=== PATIENT | female | born 1970 | race Hispanic/Latino ===

== ENCOUNTER → 2020-01-25 | Outpatient (CLI) | payer MEDICARE | END | disposition home or self-care (01) | LOC: SHCH 13:35 | PROVIDERS: ATTEND Internal Medicine Cardiovascular Disease | DX: I10 Essential (primary) hypertension (principal); R06.00 Dyspnea, unspecified | CPT/HCPCS: 93306; 93356 ==

== ENCOUNTER → 2020-01-27 | Outpatient (CLI) | payer MEDICARE ==
[~2020-01-27] MED LIST: REGADENOSON 0.4 MG/5 ML PF SYG IVP SCH
== END | disposition home or self-care (01) ==
LOC: SHCH 08:03 → EDUNIT# 08:30
PROVIDERS: ATTEND Internal Medicine Cardiovascular Disease
DX: I10 Essential (primary) hypertension (principal); R06.00 Dyspnea, unspecified; R53.83 Other fatigue; R07.89 Other chest pain
CPT/HCPCS: 78452; 93017; 96374; A9500 ×2; J2785

== ENCOUNTER 2021-04-26 05:30 | Day surgery (SDC) | payer MEDICARE ==
[2021-04-24 10:24] LABS: BASOPHILS % (AUTO) 0.6 % (0.0-5.0); EOSINOPHILS % (AUTO) 0.7 % (0.0-8.0); LYMPHOCYTES % (AUTO) 18.5 % (21.0-51.0); MEAN CORPUSCULAR HGB CONC 32.7 g/dL (32.0-36.0); MEAN CORPUSCULAR VOLUME 97.9 fL (79-99); MONOCYTES % (AUTO) 9.4 % (3.0-13.0); NEUTROPHILS % (AUTO) 69.7 % (40.0-77.0); PLATELET COUNT (AUTO) 226 K/uL (130-400); RED BLOOD CELL COUNT(AUTO) 3.37 MIL/uL (4.00-5.50); RED CELL DISTRIBUTION WIDTH 13.2 % (11.0-15.5); WHITE BLOOD COUNT (AUTO) 5.4 K/uL (4.8-10.8)
[2021-04-24 10:27] LABS: APPEARANCE,URINE Cloudy (CLEAR); BILIRUBIN,URINE Negative (NEGATIVE); COLOR,URINE Yellow (YELLOW); GLUCOSE, URINE (UA) 500 mg/dL (NEGATIVE); KETONES,URINE Negative (NEGATIVE); LEUKOCYTE ESTERASE ,URINE Trace (NEGATIVE); NITRATE,URINE Negative (NEGATIVE); OCCULT BLOOD,URINE Negative (NEGATIVE); PH,URINE 8.5 (5.0-8.0); PROTEIN,URINE >=1000 mg/dL (NEGATIVE)
[2021-04-24 10:35] LABS: INR 1.01 (0.85-1.15)
[2021-04-24 10:36] LABS: CREATININE 7.3 mg/dL (0.5-1.5); PARTIAL THROMBOPLASTIN TIME 30.5 SEC (26.3-35.5); POTASSIUM 4.1 mmol/L (3.5-5.1)
[2021-04-24 10:45] LABS: BACTERIA,URINE Few /HPF (None Seen); RBC,URINE 0-1 /HPF (0-1); WBC,URINE 0-1 /HPF (0-1)
[2021-04-25 09:31] VITALS: BP 148/67
[~2021-04-26] VITALS: Ht 149.9 cm; Wt 73.1 kg
[2021-04-26] VITALS (10 sets, daily range): BP systolic 105–158; BP diastolic 49–68
[~2021-04-26 05:30] MED LIST changes: +0.9% NACL 500ML IV.SOLN 500 ML IV SCH; +ASPI-1443 PO; +CARV6.25 PO; +CILO50TA PO; +INSU100V12 SQ; +LOSA100T58 PO; +NIFE60TA81 PO; -REGADENOSON 0.4 MG/5 ML PF SYG IVP SCH; +SEVE800T27 PO
[2021-04-26] MEDS ORDERED: 0.9%NACL 1000ML 1,000 ML IV ONE (06:08)
[2021-04-26] MEDS ORDERED: MIDAZOLAM HCL 1 MG/ML 2ML VIAL ONE (07:20)
[2021-04-26] MEDS ORDERED: HEPARIN 10,000 UNIT/10ML (1,000 UNIT/ML) VIAL ONE (07:20)
[2021-04-26] MEDS ORDERED: NITROGLYCERIN 50MG VIAL ONE (07:20)
[2021-04-26] MEDS ORDERED: LIDOCAINE HCL 400MG/20ML VIAL ONE (07:20)
[2021-04-26] MEDS ORDERED: FENTANYL CITRATE PF 50 MCG/1 ML 2ML VIAL ONE (07:20)
[2021-04-26] MEDS ORDERED: IOHEXOL 350 MG/ML 100ML INFUS..BTL IV ONE (07:26)
[2021-04-26] MEDS ORDERED: CLOPIDOGREL 300MG TAB ONE (08:13)
[2021-04-26] MEDS ORDERED: ASPIRIN 325MG EC TAB PO ONE (08:13)
[2021-04-26] MEDS ORDERED: HYDRALAZINE 20MG/ML VIAL ONE (08:47)
== END 2021-04-26 14:20 | disposition home or self-care (01) ==
LOC: DAH 05:30
PROVIDERS: ATTEND Internal Medicine Cardiovascular Disease
DX: I25.118 Atherosclerotic heart disease of native coronary artery with other forms of angina pectoris (principal); E11.22 Type 2 diabetes mellitus with diabetic chronic kidney disease; I13.2 Hypertensive heart and chronic kidney disease with heart failure and with stage 5 chronic kidney disease, or end stage renal disease; N18.6 End stage renal disease; E11.51 Type 2 diabetes mellitus with diabetic peripheral angiopathy without gangrene; E78.5 Hyperlipidemia, unspecified; Z79.82 Long term (current) use of aspirin; Z79.01 Long term (current) use of anticoagulants; Z79.899 Other long term (current) drug therapy; Z83.3 Family history of diabetes mellitus; Z82.49 Family history of ischemic heart disease and other diseases of the circulatory system; Z99.2 Dependence on renal dialysis
CPT/HCPCS: 36415 ×2; 71045; 80048; 81001; 82948; 85025; 85347; 85610; 85730; 93005; 93458; A4215; A4216; A4221; A4222; A4223 ×3; A4606; A4663; C1725 ×2; C1760; C1769; C1874; C1887 ×2; C1894 ×2; C9600; J0360; J1644 ×2; J2250; J3010; J3490 ×2; J7030; Q9965 ×2; Q9967; 99156; 99157

== ENCOUNTER 2022-06-06 05:33 | Day surgery (SDC) | payer MEDICARE ==
[2022-06-04 09:45] VITALS: BP 138/58
[2022-06-04 09:50] LABS: BASOPHILS % (AUTO) 0.6 % (0.0-5.0); EOSINOPHILS % (AUTO) 1.9 % (0.0-8.0); LYMPHOCYTES % (AUTO) 18.8 % (21.0-51.0); MEAN CORPUSCULAR HEMOGLOBIN 32.3 pg (27.0-33.0); MEAN CORPUSCULAR HGB CONC 32.1 g/dL (32.0-36.0); MEAN CORPUSCULAR VOLUME 100.6 fL (79-99); MONOCYTES % (AUTO) 9.6 % (3.0-13.0); NEUTROPHILS % (AUTO) 68.1 % (40.0-77.0); PLATELET COUNT (AUTO) 238 K/uL (130-400); RED BLOOD CELL COUNT(AUTO) 3.28 MIL/uL (4.00-5.50); RED CELL DISTRIBUTION WIDTH 12.8 % (11.0-15.5); WHITE BLOOD COUNT (AUTO) 7.2 K/uL (4.8-10.8)
[2022-06-04 10:06] LABS: INR 0.99 (0.85-1.15); PROTHROMBIN TIME 10.8 SEC (9.6-11.6)
[2022-06-04 10:07] LABS: PARTIAL THROMBOPLASTIN TIME 28.6 SEC (26.3-35.5); POTASSIUM 5.3 mmol/L (3.5-5.1)
[2022-06-04 10:11] LABS: CREATININE 8.5 mg/dL (0.5-1.5)
[2022-06-04 10:47] LABS: B-TYPE NATRIURETIC PEPTIDE 67 pg/mL (0-100)
[2022-06-06] VITALS (10 sets, daily range): BP systolic 97–158; BP diastolic 49–77
[~2022-06-06] VITALS: Ht 149.9 cm; Wt 81.8 kg
[~2022-06-06 05:33] MED LIST changes: -0.9% NACL 500ML IV.SOLN 500 ML IV SCH; -ASPI-1443 PO; -CILO50TA PO; +CILO50TA2 PO; +CLOP75TA32 PO; +GABA-529 PO; +LYSI500T45 PO; +PRAV10TA39 PO; -SEVE800T27 PO; +UBID50CA23 PO
[2022-06-06] MEDS ORDERED: 0.9%NACL 1000ML 1,000 ML IV ONE (06:20)
[2022-06-06] MEDS ORDERED: NICARDIPINE 25MG INJ IV ONE (07:09)
[2022-06-06] MEDS ORDERED: MIDAZOLAM HCL 1 MG/ML 2ML VIAL ONE ×2 (07:09→09:14)
[2022-06-06] MEDS ORDERED: IODIXANOL 320 MG/ML 100 ML VIAL ONE (07:09)
[2022-06-06] MEDS ORDERED: NITROGLYCERIN 50MG VIAL ONE (07:09)
[2022-06-06] MEDS ORDERED: FENTANYL CITRATE PF 50 MCG/1 ML 2ML VIAL ONE ×2 (07:10→09:14)
[2022-06-06] MEDS ORDERED: LIDOCAINE HCL 1% MDV 50ML VIAL ONE (07:10)
[2022-06-06] MEDS ORDERED: HEPARIN 10,000 UNIT/10ML (1,000 UNIT/ML) VIAL ONE (07:11)
[2022-06-06] MEDS ORDERED: CLOPIDOGREL 300MG TAB ONE (08:48)
[2022-06-06] MEDS ORDERED: ACETAMINOPHEN 325 MG TAB ONE (10:24)
[2022-06-06] MEDS ORDERED: ACETAMINOPHEN 325 MG TAB PO SCH (10:30)
== END 2022-06-06 15:00 | disposition home or self-care (01) ==
LOC: DAH 05:33
PROVIDERS: ATTEND Internal Medicine Cardiovascular Disease
DX: I70.211 Atherosclerosis of native arteries of extremities with intermittent claudication, right leg (principal); I70.92 Chronic total occlusion of artery of the extremities; E11.51 Type 2 diabetes mellitus with diabetic peripheral angiopathy without gangrene; E11.22 Type 2 diabetes mellitus with diabetic chronic kidney disease; I13.2 Hypertensive heart and chronic kidney disease with heart failure and with stage 5 chronic kidney disease, or end stage renal disease; I50.32 Chronic diastolic (congestive) heart failure; N18.6 End stage renal disease; E78.5 Hyperlipidemia, unspecified; I87.2 Venous insufficiency (chronic) (peripheral); Z99.2 Dependence on renal dialysis; Z79.01 Long term (current) use of anticoagulants; Z79.899 Other long term (current) drug therapy; Z79.82 Long term (current) use of aspirin; Z95.5 Presence of coronary angioplasty implant and graft; Z79.1 Long term (current) use of non-steroidal anti-inflammatories (NSAID); Z82.49 Family history of ischemic heart disease and other diseases of the circulatory system; Z83.3 Family history of diabetes mellitus; Z86.16 Personal history of COVID-19
CPT/HCPCS: 80048; 83880; 84703; 85025; 85610; 85730; 36415; 71045; 93005; 37229; 85347; 82948 ×2; 75716; C1894 ×2; C1769 ×4; C1760; C1893; C1724; C1725; C1887; J3010 ×2; J7030; J3490 ×3; J1644 ×2; J2250 ×2; Q9967; A4215; A4222; A4221; A4663; A4216; A4606; A4223 ×3; 99156; 99157

== ENCOUNTER → 2022-08-28 | Outpatient (CLI) | payer MEDICARE ==
[~2022-08-28] VITALS: Ht 149.9 cm; Wt 81.4 kg
[~2022-08-28] MED LIST changes: -LOSA100T58 PO; +LOSA100T59 PO
[2022-08-28 08:41] LABS: BASOPHILS % (AUTO) 0.4 % (0.0-5.0); EOSINOPHILS % (AUTO) 1.2 % (0.0-8.0); HEMATOCRIT 39.9 % (36-48); MEAN CORPUSCULAR HEMOGLOBIN 31.4 pg (27.0-33.0); MEAN CORPUSCULAR HGB CONC 31.6 g/dL (32.0-36.0); MEAN CORPUSCULAR VOLUME 99.5 fL (79-99); MONOCYTES % (AUTO) 5.3 % (3.0-13.0); NEUTROPHILS % (AUTO) 76.4 % (40.0-77.0); PLATELET COUNT (AUTO) 250 K/uL (130-400); RED BLOOD CELL COUNT(AUTO) 4.01 MIL/uL (4.00-5.50); RED CELL DISTRIBUTION WIDTH 11.9 % (11.0-15.5); WHITE BLOOD COUNT (AUTO) 9.3 K/uL (4.8-10.8)
[2022-08-28 08:53] LABS: INR 0.94 (0.85-1.15); PROTHROMBIN TIME 10.3 SEC (9.6-11.6)
[2022-08-28 08:55] LABS: CREATININE 5.7 mg/dL (0.5-1.5)
[2022-08-28 09:17] LABS: B-TYPE NATRIURETIC PEPTIDE 53 pg/mL (0-100)
[2022-08-28 09:57] VITALS: BP 155/73
== END | disposition home or self-care (01) ==
LOC: EDSTATUS 08:00 → DAH 10:00
PROVIDERS: ATTEND Internal Medicine Cardiovascular Disease
DX: Z01.818 Encounter for other preprocedural examination (principal); I73.9 Peripheral vascular disease, unspecified; Z79.01 Long term (current) use of anticoagulants
CPT/HCPCS: 36415; 71045; 80048; 83880; 85025; 85610; 85730; 93005

== ENCOUNTER 2022-09-12 07:20 | Day surgery (SDC) | payer MEDICARE ==
[2022-09-10 11:24] LABS: BASOPHILS % (AUTO) 0.4 % (0.0-5.0); EOSINOPHILS % (AUTO) 1.3 % (0.0-8.0); HEMATOCRIT 36.9 % (36-48); LYMPHOCYTES % (AUTO) 17.2 % (21.0-51.0); MEAN CORPUSCULAR HEMOGLOBIN 31.6 pg (27.0-33.0); MEAN CORPUSCULAR HGB CONC 31.7 g/dL (32.0-36.0); MEAN CORPUSCULAR VOLUME 99.7 fL (79-99); MONOCYTES % (AUTO) 7.2 % (3.0-13.0); NEUTROPHILS % (AUTO) 72.8 % (40.0-77.0); PLATELET COUNT (AUTO) 273 K/uL (130-400); RED CELL DISTRIBUTION WIDTH 12.6 % (11.0-15.5); WHITE BLOOD COUNT (AUTO) 9.3 K/uL (4.8-10.8)
[2022-09-10 11:36] LABS: POTASSIUM 5.9 mmol/L (3.5-5.1)
[2022-09-10 11:39] LABS: INR 1.08 (0.85-1.15); PROTHROMBIN TIME 11.7 SEC (9.6-11.6)
[2022-09-10 11:41] LABS: PARTIAL THROMBOPLASTIN TIME 35.8 SEC (26.3-35.5)
[2022-09-10 13:32] VITALS: BP 111/60
[~2022-09-12] VITALS: Ht 149.9 cm; Wt 82.3 kg
[2022-09-12] VITALS (9 sets, daily range): BP systolic 110–132; BP diastolic 51–64
[~2022-09-12 07:20] MED LIST changes: +NIFE-79 PO; -NIFE60TA81 PO; +TIRZ2.5P SQ
[2022-09-12] MEDS ORDERED: 0.9%NACL 1000ML 1,000 ML IV ONE (08:55)
[2022-09-12] MEDS ORDERED: [UNRECOGNIZED DRUG - CODE] PO (09:30)
[2022-09-12] MEDS ORDERED: RIVA2.5T PO (09:30)
[2022-09-12] MEDS ORDERED: SEVE0.8P3 PO (09:30)
[2022-09-12] MEDS ORDERED: TIRZ2.5P SQ (09:30)
[2022-09-12 09:55] LABS: CREATININE 7.6 mg/dL (0.5-1.5); POTASSIUM 5.8 mmol/L (3.5-5.1)
[2022-09-12] MEDS ORDERED: FENTANYL CITRATE PF 50 MCG/1 ML 2ML VIAL ONE ×2 (13:08→15:59)
[2022-09-12] MEDS ORDERED: LIDOCAINE HCL 400MG/20ML VIAL ONE (13:08)
[2022-09-12] MEDS ORDERED: MIDAZOLAM HCL 1 MG/ML 2ML VIAL ONE ×2 (13:09→15:00)
[2022-09-12] MEDS ORDERED: NITROGLYCERIN 50MG VIAL ONE (13:09)
[2022-09-12] MEDS ORDERED: HEPARIN 10,000 UNIT/10ML (1,000 UNIT/ML) VIAL ONE (13:09)
[2022-09-12] MEDS ORDERED: NICARDIPINE 25MG INJ IV ONE (13:09)
[2022-09-12] MEDS ORDERED: IODIXANOL 320 MG/ML 100 ML VIAL ONE (13:49)
[2022-09-12] MEDS ORDERED: CLOPIDOGREL 300MG TAB ONE (14:17)
[2022-09-12] MEDS ORDERED: DEXTROSE 50%-WATER 50 ML DISP.SYRIN IV PRN (16:30)
[2022-09-12] MEDS ORDERED: GLUCAGON 1MG KIT 1 MG ML IM PRN (16:30)
[2022-09-12] MEDS ORDERED: ACETAMINOPHEN WITH CODEINE 1 TAB TAB PO PRN (17:00)
[2022-09-12] MEDS: ACETAMINOPHEN WITH CODEINE 1 TAB TAB PO PRN ×2 (18:08→18:55)
== END 2022-09-12 19:47 | disposition home or self-care (01) ==
LOC: DAH 07:20
PROVIDERS: ATTEND Internal Medicine Cardiovascular Disease
DX: I70.212 Atherosclerosis of native arteries of extremities with intermittent claudication, left leg (principal); I70.92 Chronic total occlusion of artery of the extremities; E11.51 Type 2 diabetes mellitus with diabetic peripheral angiopathy without gangrene; E11.22 Type 2 diabetes mellitus with diabetic chronic kidney disease; I13.2 Hypertensive heart and chronic kidney disease with heart failure and with stage 5 chronic kidney disease, or end stage renal disease; I50.32 Chronic diastolic (congestive) heart failure; N18.6 End stage renal disease; I87.2 Venous insufficiency (chronic) (peripheral); R60.9 Edema, unspecified; E78.5 Hyperlipidemia, unspecified; Z95.5 Presence of coronary angioplasty implant and graft; Z86.16 Personal history of COVID-19; Z82.49 Family history of ischemic heart disease and other diseases of the circulatory system; Z83.3 Family history of diabetes mellitus; Z99.2 Dependence on renal dialysis; Z79.01 Long term (current) use of anticoagulants; Z79.82 Long term (current) use of aspirin
CPT/HCPCS: 80048 ×2; 85025; 85610; 85730; 36415 ×2; 93005; 37229; 75716; 85347 ×3; 82948 ×3; C1887; C1894 ×2; C1769 ×3; C1760; C1893; C1724; C1725 ×3; J3010 ×2; J3490 ×3; J7030; J1644 ×3; J2250 ×2; Q9967; A4215; A4222; A4221; A4663; A4216; A4606; A4223 ×3; 99156; 99157